=== PATIENT | female | born 1970 | race Caucasian/White ===

== ENCOUNTER 2017-09-24 16:03 | Emergency (ER) | payer BC ==
--- NOTE | 2017-09-24 16:47 | UC ---
Upper Extremity HPI - History of Current Complaint Stated Complaint: ARM INJURY Time Seen by Provider: 09/24/17 16:47 Hx Last Menstrual Period: Jun 2012 - uterine ablation - Allergies/Home Medications Allergies/Adverse Reactions: Allergies Allergy/AdvReac Type Severity Reaction Status Date / Time Sulfamethoxazole Allergy Rash Verified 04/08/13 08:28 w/Trimethoprim [From Bactrim] PMH/Surg Hx/FS Hx/Imm Hx - Surgical History Surgical History: Yes Surgery Procedure, Year, and Place: ovarian/uterine ablation 2011, right tib open reduction, tonsillectomy - Social History Substance Use Type: None Discharge - Discharge Plan Referrals: Gricel Proctor NP [Primary Care Provider] -
== END 2017-09-24 16:36 | disposition left against medical advice (07) ==
LOC: UCEAST 16:03
DX: S49.90XA Unspecified injury of shoulder and upper arm, unspecified arm, initial encounter (principal); X58.XXXA Exposure to other specified factors, initial encounter; Y93.9 Activity, unspecified; Y92.9 Unspecified place or not applicable; Z53.21 Procedure and treatment not carried out due to patient leaving prior to being seen by health care provider